=== PATIENT | female | born 1990 | race Caucasian/White ===

== ENCOUNTER → 2020-03-11 | Emergency (ER) | payer MEDICAID ==
[~2020-03-11] VITALS: Ht 160 cm; Wt 65.8 kg
[~2020-03-11] MED LIST: IBUPROFEN 600 MG TABLET PO ONE; IOHEXOL-300 100 ML VIAL IV ONE; IV NS 0.9% 250 ML IV ONE
--- NOTE | 2020-03-11 12:59 | NUR ---
CAME IN FOR SHARP RLQ PAIN, "BURNING WHEN EMPTYING BLADDER" SINCE THIS MORNING. TO ER BED 9, HOOKED TO MONITOR, CHANGED TO HOSP GOWN, WARM BLANKET PROVIDED, PATIENT AAO x 4, BREATHING EVEN AND UNLABORED. DR VILLEGAS AT BEDSIDE.
[2020-03-11 13:17] LABS: APPEARANCE,URINE Clear (CLEAR); BILIRUBIN,URINE Negative (NEGATIVE); BLOOD, URINE Negative Ery/uL (NEGATIVE); COLOR,URINE Yellow (YELLOW); KETONES,URINE Negative (NEGATIVE); LEUKOCYTE ESTERASE ,URINE Negative (NEGATIVE); NITRITE, URINE Negative (NEGATIVE); PROTEIN,URINE Negative (NEGATIVE); UGLUCOSE Negative (NEGATIVE); UROBILINOGEN,URINE 0.2 EU/dL (0.2)
--- NOTE | 2020-03-11 13:22 | NUR ---
URINE SAMPLE SENT TO LAB
--- NOTE | 2020-03-11 14:06 | NUR ---
PHERESIS NURSE AT BEDSIDE FOR TD
[2020-03-11 15:47] VITALS: BP 117/70
--- NOTE | 2020-03-11 15:47 | NUR ---
Patient discharged to home in stable condition. Written and verbal after care instructions given. Patient verbalizes understanding of instruction.
--- NOTE | 2020-03-11 16:00 | NUR ---
pt returned to ED. concerned about ultrasound finding that cannot r/o appendicitis. annette lopez aware. retured to room. awating md alan felix.
[2020-03-11 16:58] LABS: BASOPHILS % (AUTO) 0.5 % (0.0-2.0); EOSINOPHILS % (AUTO) 1.4 % (0.0-6.0); HEMATOCRIT 40 % (33-45); HEMOGLOBIN 13.4 g/dL (11.5-14.8); LYMPHOCYTES # (AUTO) 2.3 /CMM (0.8-4.8); LYMPHOCYTES % (AUTO) 25.2 % (20.0-44.0); MEAN CORPUSCULAR HGB CONC 33 g/dl (31.0-36.0); MEAN CORPUSCULAR VOLUME 89 fL (82-100); MONOCYTES # (AUTO) 0.8 /CMM (0.1-1.30); MONOCYTES % (AUTO) 9.4 % (2.0-12.0); NEUTROPHILS # (AUTO) 5.7 /CMM (1.8-8.9); NEUTROPHILS % (AUTO) 63.5 % (43.0-81.0); PLATELET COUNT (AUTO) 332 /CMM (150-450); RED BLOOD CELL COUNT(AUTO) 4.48 MIL/uL (4.0-5.2)
[2020-03-11 17:06] LABS: CALCIUM, SERUM 8.9 mg/dL (8.5-10.1); CREATININE 0.8 mg/dL (0.6-1.3); POTASSIUM 3.8 mmol/L (3.5-5.1)
[2020-03-11 17:18] LABS: ALBUMIN 3.9 g/dL (3.4-5.0); BILIRUBIN,DIRECT 0.1 mg/dL (0.0-0.2); BILIRUBIN,TOTAL 0.2 mg/dL (0.2-1.0); TOTAL PROTEIN, SERUM 7.4 g/dL (6.4-8.2)
--- NOTE | 2020-03-11 19:05 | NUR ---
Patient discharged to home in stable condition. Written and verbal after care instructions given. Patient verbalizes understanding of instruction.IV removed. Catheter intact and site benign. Pressure and 4x4 applied to site. No bleeding noted.
== END | disposition home or self-care (01) ==
LOC: ER 12:56
DX: R10.2 Pelvic and perineal pain (principal); R10.31 Right lower quadrant pain; Z98.890 Other specified postprocedural states
CPT/HCPCS: 36415; 74177; 76856; 80048; 80076; 81001; 84703; 85025; 99285; J7050; Q9967; 81000-TC

== ENCOUNTER 2021-03-20 06:46 | Emergency (ER) | payer MEDICAID, OTHER ==
[~2021-03-20] VITALS: Ht 160 cm; Wt 63.5 kg
[2021-03-20 07:22] VITALS: BP 112/71
[2021-03-20] MEDS ORDERED: AMOX500C2 PO (09:26)
[2021-03-20] MEDS ORDERED: AMOXICILLIN TRIHYDRATE 250 MG CAPSULE ONE (09:27)
[2021-03-20] MEDS ORDERED: AMOXICILLIN TRIHYDRATE 500 MG CAPSULE PO ONE (09:30)
--- NOTE | 2021-03-20 09:38 | NUR ---
Patient discharged to home in stable condition. Written and verbal after care instructions given. Patient verbalizes understanding of instruction.
== END 2021-03-20 09:37 | disposition home or self-care (01) ==
LOC: ER 06:46
DX: J02.0 Streptococcal pharyngitis (principal); B95.0 Streptococcus, group A, as the cause of diseases classified elsewhere; R05 Cough; Z20.822 Contact with and (suspected) exposure to COVID-19
CPT/HCPCS: 87426; 87880; 99283; C9803; U0003; 86403-TC

== ENCOUNTER 2022-02-15 11:11 | Emergency (ER) | payer OTHER ==
[~2022-02-15] VITALS: Ht 162.6 cm; Wt 60.8 kg
[~2022-02-15 11:11] MED LIST changes: +AMOX500C2 PO; -IBUPROFEN 600 MG TABLET PO ONE; -IOHEXOL-300 100 ML VIAL IV ONE; -IV NS 0.9% 250 ML IV ONE
[2022-02-15 11:17] VITALS: BP 98/67
--- NOTE | 2022-02-15 11:17 | NUR ---
BIBS C/O RASH,ABDOMINAL AREA X 3 DAYS
[2022-02-15] MEDS ORDERED: PRED50TA PO (11:38)
[2022-02-15] MEDS ORDERED: CETI-108 PO (11:38)
== END 2022-02-15 11:42 | disposition home or self-care (01) ==
LOC: ER 11:31
DX: L25.9 Unspecified contact dermatitis, unspecified cause (principal); Z60.2 Problems related to living alone; Z79.899 Other long term (current) drug therapy